=== PATIENT | female | born 1935 | race Caucasian/White ===

== ENCOUNTER → 2016-11-30 | Outpatient (CLI) | payer MEDICARE ==
[~2016-11-30] MED LIST: ACETAMINOPHEN PO; ALLEGRA ALLERGY60 MG PO; ALLEGRA PO; ALLEGRA180 MG PO; ANTI-DIARRHEAL2 M1 PO; BENADRYL25 M3 PO; BENICAR HCT 20-1 TA1 PO; BENICAR20 MG PO; CARAFATE1 G; CARVEDILOL6.25 MG PO; CIPROFLOXACIN500 M1 PO; COLESTIPOL HCL11 PO; COREG3.125 MG PO; CYANOCOBAL1000 MCG/M INJ; DESYREL50 M1 PO; DITROPAN PO; DITROPAN XL PO; FLAGYL PO; HYDROCODON-ACE1 EAC7 PO; HYDROXYUREA500 M1 PO; LORTAB 5-325 M1 EACH PO; MIRALAX17 GM PO; NEXIUM PO; NITROLINGUAL12 G1 TL; NORVASC10 MG PO; OMEPRAZOLE20 M1 PO; OMEPRAZOLE40 M1 PO; PATIENT'S PHARMACY; PHENERGAN12.5 MG PO; PRILOSEC20 M1 PO; SENNA-S TABLET1 EAC1 PO; SERTRALINE HCL100 MG PO; SIMVASTATIN40 MG PO; SYNTHROID PO; SYNTHROID112 MCG PO; SYNTHROID125 PO; TOPROL XL 50 MG50 MG PO; TOPROL XL50 MG PO; TRAZODONE PO; VITAMIN B-121000 MC1 SUBQ; ZOLOFT PO; ZOLOFT100 MG PO; ZOVIRAX30 GM TOP; ZYRTEC PO; [UNRECOGNIZED DRUG - OTHER] PO; [UNRECOGNIZED DRUG - OTHER] PO
--- NOTE | ~2016-11-30 | CT4 ---
[facility] A Service of [facility] RADIOLOGY TEXT RESULTS PATIENT: DEDRA ALONSO LOCATION: [facility] : 37 UNIT #: [id number] AGE: [address]: Angeli Lund APRN SEX: F ORDER DR: [id number] [address] [address] [id number] O MR#: [id number] Acc #: [id number] NAME: DEDRA ALONSO : 1935 SEX: F STUDY DATE/TIME: 11/30/2016 14:11 UNIT: [facility] ROOM: STUDY DESCRIPTION: CT Abd and Pelv Wo Cont Attending Physician: Angeli Lund A.P.R.N. Referring Physician: Angeli Lund A.P.R.N. Ordering Physician: Angeli Lund A.P.R.N. Primary Care Physician: Carol Nichols M.D. MEDICAL IMAGING REPORT This report is preliminary unless electronic signature is present. EXAM CT of the abdomen and pelvis without contrast media. HISTORY Abdominal pain for 2 weeks, history of diverticulitis. TECHNIQUE Axial imaging of the abdomen and pelvis was performed without contrast and compared with a prior noncontrast scan of January 2016. This CT exam was performed with one or more of the following radiation dose reduction techniques: automatic exposure control, adjustment of mA and/or kV according to patient size, and iterative reconstruction. FINDINGS Scans through the lung bases show some fibrosis in both bases. There are atherosclerotic calcifications throughout the coronary arteries. There is a dense calcification in the right lobe of the liver anterior segment which is unchanged. Gallbladder is absent. Spleen is of normal size, adrenal glands are normal. Pancreas is normal. There are multiple bilateral nonobstructing renal stones. There is no hydronephrosis or hydroureter. No stones are identified in either ureter. There is mild diffuse colon wall thickening involving the right colon and transverse colon to just to the left of midline. Findings are consistent with diffuse colitis. No other bowel wall thickening is identified. Uterus is absent. No pelvic masses or fluid collections are seen. Postop changes of prior ventral hernia repair present. There is diffuse atherosclerotic disease present and there is degenerative disc disease at L4-5 and 5-1. CONCLUSION 1. Evidence of colitis involving the right and transverse colons. 2. Postop changes of prior cholecystectomy and hysterectomy. 3. Multiple bilateral nonobstructing renal stones. [facility] A Service of [facility] RADIOLOGY TEXT RESULTS PATIENT: DEDRA ALONSO LOCATION: [facility] : 37 UNIT #: [id number] AGE: [address]: Angeli Lund APRN SEX: F ORDER DR: Dictated by... Johann Cotto M.D. THIS IS AN ELECTRONICALLY VERIFIED REPORT Johann Cotto M.D. at 12/01/2016 9:32 AM ANUSHA/ramiro TD: 11/30/2016 19:59 JOB #: [id number] MEDICAL IMAGING REPORT Page 1 of 1
== END | disposition home or self-care (01) ==
LOC: SCT 14:00
DX: R10.9 Unspecified abdominal pain (principal); K52.9 Noninfective gastroenteritis and colitis, unspecified; N20.0 Calculus of kidney; Z90.49 Acquired absence of other specified parts of digestive tract; Z90.710 Acquired absence of both cervix and uterus
CPT/HCPCS: 74176

== ENCOUNTER 2016-12-06 10:27 | Observation (INO) | payer OTHER ==
--- NOTE | ~2016-12-06 | HP ---
Unit #: [id number] #: [id number] Patient: DEDRA ALONSO [id number] [address] [place], [place] [address] [id number] I MR#: [id number] NAME: DEDRA ALONSO. ROOM: 218 Age: 81 Sex: F Admission Date: 12/06/2016 : 1935 Attending Physician: Levon Ratliff M.D. Primary Care Physician: Carol Nichols M.D. HISTORY AND PHYSICAL SINGING TEACHER Dr. Brown CHIEF COMPLAINT Abdominal pain. HISTORY OF PRESENT ILLNESS The patient is a very pleasant 81-year-old female with a history of multiple medical problems including hypothyroidism, hypertension, GERD, and depression, who is a direct admit from her primary care physician's office with complaints of lower abdominal pain. Patient was started on Cipro and Flagyl just last week but without any improvement. She denies the pain is associated with eating but does endorse a decreased appetite. Patient denies any bright red blood per rectum, no melena, no fevers or chills, and no hematemesis. She does endorse some nausea but without any emesis. Patient states she has had at least two episodes of diverticulitis. She states that the pain feels as if someone is twisting her insides and then letting go, and this is coming and going and been persistent throughout. Patient also endorses some chest pain that radiates around to both sides of her chest up into her neck area. Patient was to see Dr. Brown today regarding this as he is her primary stamp maker but not make the appointment secondary to being admitted. Patient states that she has had a stress test before and does follow with Dr. Brown. REVIEW OF SYSTEMS Ten out of 14 systems were reviewed and negative unless noted above. PAST MEDICAL HISTORY 1. Hypothyroidism. 2. Diverticulitis. 3. Hypertension. 4. Gastroesophageal reflux disease. 5. Depression. PAST SURGICAL HISTORY 1. Hysterectomy. 2. Bladder tack. 3. Hernia repair. 4. Cholecystectomy. ALLERGIES Codeine and latex. Unit #: [id number] #: [id number] Patient: DEDRA ALONSO MEDICATIONS 1. Synthroid 125 mcg q.a.m. 2. Zoloft 100 mg daily. 3. Prilosec 20 mg daily. 4. Norvasc 10 mg daily. 5. Kathy 60 mg daily as needed. 6. Toprol-XL 25 mg every evening. SOCIAL HISTORY Patient lives alone. No tobacco, no alcohol. FAMILY HISTORY Noncontributory. PHYSICAL EXAMINATION VITAL SIGNS: Patient is afebrile, although in the doctor's office she did have a temperature of 99.1, and saturating 94% on room air. The remainder of vital signs were stable. GENERAL: Patient appears to be a well-developed, overweight, elderly female who is in no acute distress. HEENT: Pupils are equal and reactive to light and accommodation. Extraocular muscles are intact. Oropharynx is clear. Mucous membranes appear to be slightly dry. Sclerae are anicteric. NECK: Without lymphadenopathy. LUNGS: Clear to auscultation bilaterally. HEART: Regular rate and rhythm. No rubs, gallops, or murmurs appreciated. ABDOMEN: Positive bowel sounds. Soft, slightly tender to palpation in the right lower and upper quadrants, however, no rebound or guarding, and obese. EXTREMITIES: No clubbing, cyanosis, or edema was noted. NEUROLOGIC: Nonfocal. DIAGNOSTIC STUDIES LABORATORY: Currently pending at the time of this dictation. IMAGING: CT scan of the abdomen and pelvis from December 01 shows colitis on the right side, as well as the transverse colon. Multiple nonobstructive kidney stones were seen as well. ASSESSMENT AND PLAN 1. Colitis, appears to be right sided, has not improved with one week of antibiotics which included ciprofloxacin and Flagyl. Question if this could be ischemic bowel. I have asked Dr. Springer with Gastroenterology to see as he did perform patient's colonoscopy earlier this year. Will hold further antibiotics for now. I have ordered stool studies, along with sedimentation rate and CRP. 2. Chest pain. I have ordered cardiac enzymes. The patient does follow with Dr. Brown and had an appointment as an outpatient to see him today. Will check cardiac enzymes and then defer to the morning hospitalist if they want to consult Cardiology at this time. 3. Hypothyroidism. Will check a TSH level and continue home dose. 4. Gastroesophageal reflux disease. Continue proton pump inhibitor. 5. Hypertension. Continue home medications with parameters. 6. Depression. Continue Zoloft. 7. Patient is a Full Code. 8. I expect disposition in under 48 hours. 1. Unit #: [id number] #: [id number] Patient: DEDRA ALONSO Dictated by Anju Nair TD: 12/06/2016 17:23 JOB #: [id number] HISTORY AND PHYSICAL Page 1 of 1 X X HISTORY AND PHYSICAL
--- NOTE | ~2016-12-06 | DS ---
Unit #: [id number] #: [id number] Patient: DEDRA ALONSO [id number] [address] [address] [id number] I MR#: [id number] NAME: DEDRA ALONSO. ROOM: 218 Age: 81 Sex: F Admission Date: 12/06/2016 : 1935 Discharge Date: Attending Physician: Jessy White M.D. Primary Care Physician: Carol Nichols M.D. DISCHARGE SUMMARY DISCHARGE DIAGNOSES 1. Acute colitis. 2. Chest pain, atypical. 3. Acute thrombocytopenia, etiology unclear, no active bleeding. 4. Anemia, acute, no active bleeding, likely iron deficiency, occult stool negative. Also, she has B12 deficiency. 5. B12 deficiency. 6. Hypothyroidism. 7. History of diverticulitis. 8. Hypertension. 9. Gastroesophageal reflux disease. 10. Depression. CONSULTATION Dr. Springer. PROCEDURE Patient had colonoscopy but could not complete the colonoscopy because patient has a lot of stool. Bowels are not clear. DIAGNOSTIC STUDIES LABORATORY: Clostridium difficile negative. Shigatoxin 1 and 2 negative. Campylobacter negative. WBC 6.2, hemoglobin 8.9, platelets 72,000. Sodium 139, potassium 3.5, creatinine 0.9. AST 24, ALT 15, alkaline phosphatase 122, albumin 3.3. Occult blood in stool negative. B12 is 136. Ferritin 436. Folate 8.2. Troponin negative. TSH 5. ALLERGIES Latex. DISCHARGE MEDICATIONS 1. Tylenol 650 q.6 p.r.n. pain. 2. Zoloft 100 mg p.o. daily. 3. Kathy 60 mg p.o. daily. 4. Amlodipine 10 mg daily. 5. Toprol XL 25 daily. 6. Omeprazole 20 daily. 7. Synthroid 125 mcg daily. 8. Flagyl 500 p.o. three times daily for five days. 9. Ciprofloxacin 500 mg p.o. b.i.d. for five days. 10. MiraLax 17 g daily. 11. Senna one tablet p.o. daily. 12. Vitamin B12 at 1000 mcg subcutaneous daily. Unit #: [id number] #: [id number] Patient: DEDRA ALONSO HOSPITALIZATION COURSE A 81 year old admitted because of abdominal pain. Abdominal pain secondary to acute colitis: Patient seen by Dr. Springer. Patient did have history of colitis recently. On November 30, patient's CT of the abdomen and pelvis shows evidence of colitis in right and transverse colon. 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 The patient was started on Flagyl and Zosyn. Colonoscopy could not be completed because of the heavy stool burden. I discussed in detail with Dr. Springer. Currently, patient is symptomatic, tolerating diet okay. The patient will be discharged home on antibiotics, Flagyl and ciprofloxacin for five days. She will have daily MiraLax and Senna and follow with Dr. Springer in six weeks' time. She might need repeat colonoscopy for followup of her recurrent colitis. Her Clostridium difficile is negative. Vitamin B12 deficiency with anemia and thrombocytopenia: I am going to give her subcutaneous injections and follow. She might need home health for injections. History of hypertension: Stable. Chest pain: Atypical, likely from colitis, currently resolved. Also, could be from her gastritis and GERD. Acute thrombocytopenia: Likely from B12 deficiency. No active bleeding. Continue with B12 and follow with family physician. Acute anemia: Likely from B12 deficiency. Iron levels are normal. No active bleeding. Continue with B12 and follow with family physician. DISPOSITION Discharge home. FOLLOWUP 1. Follow with family physician in one week time. 2. Follow with Dr. Ankit Springer in six weeks' time. Dictated by... Anju Sequeira/antony TD: 12/08/2016 11:26 JOB #: [id number] CC: Ankit Springer M.D. Unit #: [id number] #: [id number] Patient: DEDRA ALONSO DISCHARGE SUMMARY Page 1 of 1 X Jessy White MD DISCHARGE SUMMARY
--- NOTE | ~2016-12-06 | OR ---
Unit #: [id number] #: [id number] Patient: DEDRA ALONSO [id number] [address] [address] [id number] I MR#: [id number] NAME: DEDRA ALONSO. ROOM: 218 Date of Procedure: 12/07/2016 Admission Date: 12/08/2016 Surgeon: Ankit Springer M.D. : 1935 Attending Physician: Jessy White M.D. Primary Care Physician: Carol Nichols M.D. OPERATIVE REPORT PRIMARY CARE PHYSICIAN Carol Nichols M.D. PREOPERATIVE DIAGNOSES The patient presented with a history of abdominal pain and colitis on a CAT scan. PROCEDURE PERFORMED Sigmoidoscopy. POSTOPERATIVE DIAGNOSES The patient had solid fecal impaction in the rectosigmoid and proximally as far as one could see. Therefore, colonoscopy was not performed and procedure was only limited up to the examination except the colon only up to the proximal sigmoid colon. The mucosa here was normal. RECOMMENDATIONS It is noteworthy the patient had a colonoscopy within the last year or two and therefore colon cancer is not an issue. The most likely etiology of presentation is infectious colitis. Therefore, suggest continue on empiric treatment. We will also give her a dose of magnesium citrate tomorrow morning to disimpact the stool. SEDATION USED MAC. DESCRIPTION OF PROCEDURE Following detailed explanation of the potential risks and complications of a colonoscopy, namely perforation, bleeding, and complication related to sedation, the patient was brought to GI lab and laid in the left lateral decubitus position. A digital rectal examination was performed, which was normal. Lubricated tip of the Olympus video colonoscopy was inserted through the anus and advanced under direct vision. The scope was advanced past rectum into the sigmoid colon. Solid fecal impaction was noted in this area. Solid stool was present as far as one could see up to the proximal sigmoid. Thereafter, the impaction got even worse. The scope was then withdrawn. The examined mucosa appeared normal. The patient tolerated the procedure without any postprocedure complications. Dictated by... Ankit Springer M.D. Unit #: [id number] #: [id number] Patient: DEDRA ALONSO RADHA/lorenza TD: 12/08/2016 17:40 JOB #: [id number] Levon Ratliff M.D. OPERATIVE REPORT Page 1 of 1 X Ankit Springer MD PROCEDURE OPERATIVE NOTE
--- NOTE | ~2016-12-06 | CO ---
Unit #: [id number] #: [id number] Patient: DEDRA ALONSO [id number] [address] [address] [id number] I MR#: [id number] NAME: DEDRA ALONSO. ROOM: 218 Age: 81 Sex: F Admission Date: 12/08/2016 : 1935 Attending Physician: Jessy White M.D. Primary Care Physician: Carol Nichols M.D. Consultation Date: 12/06/2016 CONSULTATION REPORT PRIMARY CARE PHYSICIAN Stephanie GuzmanRClaudioN. REASON FOR CONSULTATION "Colitis." HISTORY OF PRESENT ILLNESS Ms. Pierce is a very pleasant 81-year-old white female. The patient is quite active physically and was well until about a week ago when she developed pain in the lower abdomen along with watery, nonbloody diarrhea. This has abated somewhat after she saw her PCP and was given oral treatment antibiotics Flagyl and Levaquin. Two days later, the patient had recurrent cramping with diarrhea and significant pain in the lower abdomen to the point that she had to be brought to the hospital. She is still having intermittent spasms of pain. There is no history of passing any blood per rectum. PAST MEDICAL HISTORY Significant for history of hypothyroidism, hypertension, gastroesophageal reflux, depression, and diverticulitis. PAST SURGICAL HISTORY Included cholecystectomy, hysterectomy, herniorrhaphy, and bladder suspension surgery. MEDICATIONS At home included Synthroid, Zoloft, Prilosec, Norvasc, Toprol-XL. ALLERGIES She is allergic to codeine and latex. FAMILY HISTORY None of colon or pancreatic cancer, or liver disease. SOCIAL HISTORY She lives at home by herself. Does not smoke or drink alcohol. REVIEW OF SYSTEMS Detailed review of organ systems does not reveal any recent weight loss. No history of fever, chills, or rigors. No history of headache, seizures, chest pain, or syncope. No history of cough, expectoration, or hemoptysis. No history of dysuria, hematuria, or pyuria. No history of Unit #: [id number] #: [id number] Patient: SANDMANN,DEDRA J focal seizures or extremity weakness. Rest of the review of organ systems are unremarkable. PHYSICAL EXAMINATION GENERAL: She is awake, alert, and oriented, and appears comfortable. VITAL SIGNS: Stable with a temperature of 98.6, pulse 84 per minute and regular, respiratory rate is 18, blood pressure is 140/68. She weighs 180 pounds, which is close to her baseline weight. HEENT: She has mild pallor. There being no icterus, lymphadenopathy, or peripheral edema. CARDIOVASCULAR: Normal heart sounds. No murmurs. LUNGS: Auscultation over the lungs reveals normal breath sounds. Good air entry. ABDOMEN: Soft and there being localized tenderness in the right lower quadrant and suprapubic area. No rigidity, guarding, or rebound is felt. Liver and spleen are not palpable. Bowel sounds normal. DIAGNOSTIC STUDIES LABORATORY RESULTS: Shows no leukocytosis in fact the patient has normochromic normocytic anemia with a hemoglobin of 9.7. The white count is normal, platelet count is 79 and her baseline platelet count in the past has been normal. Serum chemistry is essentially unremarkable and albumin is 3.7. IMAGING STUDIES: CT scan of the abdomen shows diffuse colitis primarily involving the right side of colon and transverse colon. CLINICAL IMPRESSION The most likely etiology patient presentation is indeed infectious colitis. We will need stool studies for Clostridium difficile toxin, enteric picture and fecal leukocytes. We will also prep the patient for a limited colonoscopy with MiraLax Gatorade prep for tomorrow morning. Also, she will require analgesia for pain and this is being written as in the form of morphine 3 mg and Phenergan 12.5 mg q.4 hours p.r.n. pain. Thank you very much for asking me to see this pleasant woman. I appreciate the consult. Dictated by... Anju Catalan/lorenza TD: 12/07/2016 02:29 JOB #: [id number] CC: Stephanie GuzmanRSajan . . Unit #: [id number] #: [id number] Patient: DEDRA ALONSO CONSULTATION REPORT Page 1 of 1 X Ankit Springer MD CONSULTATION REPORT
[~2016-12-06 10:27] MED LIST changes: -ACETAMINOPHEN PO; -ALLEGRA ALLERGY60 MG PO; -CIPROFLOXACIN500 M1 PO; -CYANOCOBAL1000 MCG/M INJ; -DITROPAN XL PO; -FLAGYL PO; -HYDROCODON-ACE1 EAC7 PO; -HYDROXYUREA500 M1 PO; -LORTAB 5-325 M1 EACH PO; -MIRALAX17 GM PO; -NORVASC10 MG PO; -OMEPRAZOLE40 M1 PO; -PATIENT'S PHARMACY; -PHENERGAN12.5 MG PO; -SENNA-S TABLET1 EAC1 PO; -TOPROL XL50 MG PO; -VITAMIN B-121000 MC1 SUBQ; -ZOLOFT100 MG PO; -ZOVIRAX30 GM TOP
[2016-12-06] MEDS ORDERED: NORVASC10 MG PO (16:01)
[2016-12-06] MEDS ORDERED: ALLEGRA ALLERGY60 MG PO (16:01)
[2016-12-06] MEDS ORDERED: ACETAMINOPHEN PO (16:02)
[2016-12-06 18:17] LABS: BASOPHIL# 0.1 X10e3 (0-0.3); BASOPHIL% 1.5 % (0-2.5); HEMATOCRIT 28.5 % (35.0-45.0); HEMOGLOBIN 9.7 gm/dL (12.0-16.0); LYMPHOCYTE# 5.9 X10e3 (1.0-3.5); LYMPHOCYTE% 94.2 % (17.0-45.0); MEAN CELL VOLUME 97.5 FL (83-96); MEAN CORPUSCULAR HGB CONC 33.9 g/dL (30-36); MEAN PLATELET VOLUME 7.1 FL (6.5-11.5); MONOCYTE# 0.1 X10e3 (0-1.0); MONOCYTE% 2.3 % (3.0-12.0); NEUTROPHIL# 0.1 X10e3 (1.5-7.1); PLATELET COUNT 79 X10e3 (140-420); RED BLOOD COUNT 2.92 X10e (3.90-5.30); RED CELL DISTRIBUTION WIDTH 17.3 % (11.0-15.5); WHITE BLOOD COUNT 6.3 X10e3 (4.0-10.5)
[2016-12-06 18:19] LABS: DIFF IND YES
[2016-12-06 18:30] LABS: ALBUMIN SERUM 3.7 g/dL (3.5-5.0); BILIRUBIN,TOTAL 0.5 mg/dL (0.2-2.0); BUN/CREATININE RATIO 16.66; CALCIUM SERUM 8.6 mg/dL (8.4-10.2); CREATININE SERUM 0.9 mg/dL (0.6-1.4); GLOM FILT RATE Estimated 60.9 mL/min (>60); POTASSIUM 4.2 mmol/L (3.5-5.1); PROTEIN TOTAL SERUM 7.2 g/dL (6.0-8.3)
[2016-12-06 18:56] LABS: ANISOCYTOSIS MOD; MB 1.6 ng/ml; PLATELET ESTIMATE DECREASED (NORMAL); POIKILOCYTOSIS SL
[2016-12-06 22:01] LABS: %MB 1.9 % (0.0-4.0); MB 1.6 ng/ml
[2016-12-07 01:31] LABS: EOSINOPHIL% 0.1 % (0.0-7.0); HEMATOCRIT 28.3 % (35.0-45.0); HEMOGLOBIN 9.5 gm/dL (12.0-16.0); LYMPHOCYTE# 7.8 X10e3 (1.0-3.5); LYMPHOCYTE% 94.5 % (17.0-45.0); MEAN CELL VOLUME 98.3 FL (83-96); MEAN CORPUSCULAR HEMOGLOBIN 32.9 PG (28-34); MEAN CORPUSCULAR HGB CONC 33.5 g/dL (30-36); MONOCYTE# 0.2 X10e3 (0-1.0); MONOCYTE% 2.5 % (3.0-12.0); NEUTROPHIL# 0.2 X10e3 (1.5-7.1); NEUTROPHIL% 2.9 % (40-75); PLATELET COUNT 75 X10e3 (140-420); RED BLOOD COUNT 2.88 X10e (3.90-5.30); RED CELL DISTRIBUTION WIDTH 17.6 % (11.0-15.5); WHITE BLOOD COUNT 8.2 X10e3 (4.0-10.5)
[2016-12-07 01:32] LABS: DIFF IND NO
[2016-12-07 01:55] LABS: CK TOTAL 57 IU/L (26-140)
[2016-12-07 01:59] LABS: ALBUMIN SERUM 3.6 g/dL (3.5-5.0); BILIRUBIN,TOTAL 0.7 mg/dL (0.2-2.0); BUN/CREATININE RATIO 17.5; CALCIUM SERUM 8.4 mg/dL (8.4-10.2); CREATININE SERUM 0.8 mg/dL (0.6-1.4); GLOM FILT RATE Estimated 70.2 mL/min (>60); POTASSIUM 3.7 mmol/L (3.5-5.1); PROTEIN TOTAL SERUM 6.8 g/dL (6.0-8.3)
[2016-12-07 12:01] LABS: IRON SERUM 117 ug/dL (28-170); TOTAL IRON BINDING CAPACITY 279 ug/dL (269-535); TRANSFERRIN 199 mg/dL (192-382); TRANSFERRIN SATURATION 42 % (20-50)
[2016-12-07 12:19] LABS: FOLATE (FOLIC ACID) 8.2 ng/mL (>5.8)
[2016-12-08 07:09] LABS: ALBUMIN SERUM 3.3 g/dL (3.5-5.0); BILIRUBIN,TOTAL 0.3 mg/dL (0.2-2.0); BUN/CREATININE RATIO 15.55; CALCIUM SERUM 8.3 mg/dL (8.4-10.2); CREATININE SERUM 0.9 mg/dL (0.6-1.4); GLOM FILT RATE Estimated 60.9 mL/min (>60); POTASSIUM 3.5 mmol/L (3.5-5.1); PROTEIN TOTAL SERUM 6.4 g/dL (6.0-8.3)
[2016-12-08 07:21] LABS: HEMATOCRIT 26.5 % (35.0-45.0); HEMOGLOBIN 8.9 gm/dL (12.0-16.0); MEAN CORPUSCULAR HEMOGLOBIN 32.8 PG (28-34); MEAN CORPUSCULAR HGB CONC 33.5 g/dL (30-36); MEAN PLATELET VOLUME 7.5 FL (6.5-11.5); RED BLOOD COUNT 2.7 X10e (3.90-5.30); RED CELL DISTRIBUTION WIDTH 17.6 % (11.0-15.5); WHITE BLOOD COUNT 6.2 X10e3 (4.0-10.5)
[2016-12-08] MEDS ORDERED: FLAGYL PO (11:04)
[2016-12-08] MEDS ORDERED: CIPROFLOXACIN500 M1 PO (11:05)
[2016-12-08] MEDS ORDERED: VITAMIN B-121000 MC1 SUBQ (11:07)
[2016-12-08] MEDS ORDERED: SENNA-S TABLET1 EAC1 PO (11:08)
[2016-12-08] MEDS ORDERED: MIRALAX17 GM PO (11:08)
== END 2016-12-08 12:17 | disposition home or self-care (01) ==
LOC: UNDOADMOB 10:27 → C2A 10:27 → UNDOADMOB 15:02 → C2A 15:02
PROVIDERS: Internal Medicine
PROC: 0DJD8ZZ Inspection of Lower Intestinal Tract, Via Natural or Artificial Opening Endoscopic (ICD-10-PCS; principal; 2016-12-08)
DX: K52.89 Other specified noninfective gastroenteritis and colitis (principal); R07.89 Other chest pain; K56.41 Fecal impaction; D69.6 Thrombocytopenia, unspecified; D64.9 Anemia, unspecified; E53.8 Deficiency of other specified B group vitamins; E03.9 Hypothyroidism, unspecified; I10 Essential (primary) hypertension; K21.9 Gastro-esophageal reflux disease without esophagitis; F32.9 Major depressive disorder, single episode, unspecified; Z79.899 Other long term (current) drug therapy; Z91.040 Latex allergy status; Z90.710 Acquired absence of both cervix and uterus; Z90.49 Acquired absence of other specified parts of digestive tract; Z98.890 Other specified postprocedural states; Z88.5 Allergy status to narcotic agent
CPT/HCPCS: 80053; 82274; 82550; 82553; 82607; 82728; 82746; 83540; 83550; 83630; 84443; 84484; 85025; 85027; 85652; 86140; 87045; 87427; 87493; 87899; G0378; J2270; J2543

== ENCOUNTER 2017-01-01 11:54 | Inpatient (IN) | payer OTHER ==
[~2017-01-01] VITALS: Ht 160 cm; Wt 87.7 kg
--- NOTE | ~2017-01-01 | CR72 ---
[facility] A Service of [facility] RADIOLOGY TEXT RESULTS PATIENT: DEDRA ALONSO LOCATION: [facility] : 37 UNIT #: [id number] AGE: [address]: Alexx Gil MD SEX: F ORDER DR: [id number] [facility] [address] [place], [place] [address] [id number] MR#: [id number] Acc #: [id number] NAME: DEDRA ALONSO : 1935 SEX: F STUDY DATE/TIME: 01/01/2017 13:35 UNIT: [facility] ROOM: STUDY DESCRIPTION: CR Chest Single View Portable Attending Physician: Alexx Gil M.D. Ordering Physician: Alexx Gil M.D. Primary Care Physician: Carol Nichols M.D. MEDICAL IMAGING REPORT This report is preliminary unless electronic signature is present EXAM Chest portable 01/01/2017 1335 hours. HISTORY 81-year-old with 1-week history of chest pain and shortness of air. Prior history of hypertension. COMPARISON 08/29/2010 FINDINGS Portable upright chest demonstrates heart size within normal limits. There is a mildly tortuous aorta. There is mild right hilar fullness new since the prior exam. There is pulmonary venous distension and mild interstitial prominence increased from the prior study. Findings could represent mild edema. Suggest followup chest radiographs post-treatment for edema to reassess the right hilum. If this remains prominent, a followup chest CT with contrast would be recommended. IMPRESSION Heart size is normal. There is mild pulmonary vascular prominence and mild interstitial prominence in the lungs increased from 08/29/2010. The right hilum appears mildly prominent which could simply be due to the vascular distension although an underlying lymph node or mass cannot be excluded. Suggest treatment for underlying interstitial process with short-interval followup radiographs. If this finding persists at the right hilum then a followup chest CT with contrast would be recommended to exclude a hilar lymph node or hilar mass. STAT * RESULT STS. [facility] A Service of [facility] RADIOLOGY TEXT RESULTS PATIENT: DEDRA ALONSO LOCATION: [facility] : 37 UNIT #: [id number] AGE: [address]: Alexx Gil MD SEX: F ORDER DR: Dictated by... Elle Peterson M.D. THIS IS AN ELECTRONICALLY VERIFIED REPORT Elle Peterson M.D. at 01/01/2017 2:35 PM JOHN/carolyn TD: 01/01/2017 14:00 JOB #: [id number] MEDICAL IMAGING REPORT Page 1 of 1 COPY
--- NOTE | ~2017-01-01 | TOC ---
Unit #: [id number] #: [id number] Patient: DEDRA ALONSO [id number] [address] [place], [place] [address] [id number] I MR#: [id number] NAME: DEDRA ALONSO. ROOM: 226 Age: 81 Sex: F Admission Date: 01/01/2017 : 1935 Attending Physician: Keyana Carpenter M.D. Primary Care Physician: Carol Nichols M.D. TRANSFER OF CARE SUMMARY PRINCIPAL DIAGNOSES 1. Lymphocytosis with pending flow cytometry and bone marrow biopsy. 2. Anemia, secondary to poor bone marrow production status post 2 units of packed red blood cells. 3. Thrombocytopenia, secondary to poor marrow production, stable with platelet level of approximately 40,000. 4. Hypertension. 5. Hypothyroidism. 6. Gastroesophageal reflux disease. 7. Obesity. 8. Mild vitamin B12 deficiency. 9. Right lower lobe spiculated mass. PAN WASHER HAND Dr. Hooker, Oncology. PROCEDURES 1. Bone marrow biopsy results which are currently pending. 2. Flow cytometry, results of which are also currently pending. 3. CT scan of the abdomen and pelvis on January 01, 2017 with a spiculated nodule on the right lower lobe measuring 2.1 cm. Underlying emphysema noted. Moderate stool burden in the ascending and transverse colon. Multiple nonobstructing renal calculi. 4. Chest x-ray on January 01, 2017 with changes of emphysema, pulmonary venous distention, and mild interstitial prominence are noted. CLINICAL HISTORY AND HOSPITAL COURSE Ms. Alonso is a very nice 81-year-old female who presents to the emergency department with significant fatigue. In the emergency department, the patient was found to have a hemoglobin of 6.8 in addition to being thrombocytopenic with a platelet count of 51,000. White blood cell count was elevated at 30.8. Patient underwent CT scan which revealed only constipation but no other acute findings. I will note that CT scan did reveal a right lower lobe pulmonary nodule. Patient was subsequently admitted. Patient was started on empiric antibiotics, but she did not appear to have any infection. Review of records indicate that she was at this facility in early December 2016 with colitis and was found to be anemic at that point; however, Hemoccult at that point was negative and sigmoidoscopy was unremarkable. She was also mildly B12 deficient but that was being replaced. Records at that time revealed a significant amount of lymphocytes and differential on CBC. In early December, hemoglobin and platelet count were normal. However, she returned with significantly Unit #: [id number] #: [id number] Patient: DEDRA ALONSO abnormal values at this time. A peripheral smear done while patient was in the ER revealed atypical lymphocytes. Hence, a hematology evaluation. The patient has undergone bone marrow biopsy and flow cytometry, results which are currently pending. I will note that after 2 units of blood, the patient's hemoglobin has remained stable. Her thrombocytopenia has also remained stable without any evidence of bleeding. Patient had not had any heme-positive stools since here. I am currently awaiting final pathology to determine course of action. Patient's other chronic conditions remain stable. She has been seen by physical therapy and suggesting a rolling walker but otherwise she can be helped with ambulation at home by her daughters and patient is agreeable. Further hospital course to be dictated as an addendum. Dictated by... Keyana Carpenter M.D. [facility]/antony TD: 01/05/2017 11:20 JOB #: [id number] TRANSFER OF CARE SUMMARY Page 1 of 1 X Keyana Carpenter MD TRANSFER OF CARE SUMMARY
--- NOTE | ~2017-01-01 | DS ---
Unit #: [id number] #: [id number] Patient: DEDRA ALONSO [id number] [address] [address] [id number] I MR#: [id number] NAME: DEDRA ALONSO. ROOM: 226 Age: 81 Sex: F Admission Date: 01/01/2017 : 1935 Discharge Date: 01/04/2017 Attending Physician: Keyana Carpenter M.D. Primary Care Physician: Carol Nichols M.D. DISCHARGE SUMMARY ADDENDUM Please note, this is a continuation of a previously dictated transfer of care note done earlier today. PRINCIPAL DIAGNOSES 1. 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 2. Herpes labialis. 3. Depression. 4. Seasonal allergies. 5. Urge incontinence. 6. Hypothyroidism. HOSPITAL COURSE Patient was seen after last dictation by Dr. Hooker and patient really would like to go home. It appears pathology from her bone marrow biopsy and flow cytometry will not be back until early next week. Dr. Hooker was agreeable to discharge home and close followup with him early next week. DISCHARGE CONDITION Stable. DISCHARGE STATUS Discharge to home. DISCHARGE MEDICATIONS 1. Tylenol 500 mg p.o. daily p.r.n. for pain. 2. Zoloft 100 mg daily. 3. Kathy 1 tablet p.o. daily p.r.n. for allergy symptoms. 4. Acyclovir ointment 5% applied topically every 4 hours to cold sores to stop after dose on January 10, 2017. 5. Toprol XL 50 mg daily. 6. Ditropan XL 15 mg daily. 7. Omeprazole 40 mg daily. 8. Levothyroxine 125 mcg daily. 9. Vitamin B12 1000 mcg injected weekly. DISCHARGE INSTRUCTIONS 1. Patient instructed to follow a regular diet. 2. She can increase her activity as tolerated. 3. Followup: Patient will follow up with Dr. Hooker on Sunday, January 08, 2017, as instructed. Unit #: [id number] #: [id number] Patient: DEDRA ALONSO Dictated by... Keyana Carpenter M.D. SHIVANI/john TD: 01/05/2017 11:16 JOB #: [id number] DISCHARGE SUMMARY Page 1 of 1 X Keyana Carpenter MD DISCHARGE SUMMARY
--- NOTE | ~2017-01-01 | EKG ---
PATIENT: DEDRA ALONSO UNIT #: [id number] Ventricular Rate: 86 BPM Atrial Rate: 86 BPM P-R Interval: 136 ms QRS Duration: 88 ms Q-T Interval: 392 ms QTC Calculation(Bezet): 469 ms P [place]: 55 degrees Calculated R [place]: -11 degrees Calculated T [place]: 18 degrees Diagnosis Line: Normal sinus rhythm Diagnosis Line: Normal ECG Diagnosis Line: When compared with ECG of 03-AUG-2015 17:07, Diagnosis Line: No significant change was found Diagnosis Line: Confirmed by MARCY RAPP MD ([id number]) on Diagnosis Line: 01/03/2017 7:10:54 AM INTERPRETING MD: EVERARDO
--- NOTE | ~2017-01-01 | HP ---
Unit #: [id number] #: [id number] Patient: DEDRA ALONSO [id number] [address] [address] [id number] MR#: [id number] NAME: DEDRA ALONSO ROOM: Age: 81 Sex: F Admission Date: 01/01/2017 : 1935 Attending Physician: Alexx Santos M.D. Primary Care Physician: Carol Nichols M.D. HISTORY AND PHYSICAL CHIEF COMPLAINT Weakness. HISTORY OF PRESENT ILLNESS The patient is a 81-year-old female with history of multiple medical problems including hypothyroidism, hypertension, GERD, depression, colitis. Was recently discharged from the hospital after sigmoidoscopy on December 08. Presented to the emergency room complaining of generalized weakness. The patient stated that the patient was on antibiotics for a colitis and since then the patient has been gradually worsening to the point where she cannot stand up and walk. The patient was found to have a hemoglobin of 6.8 and platelets of 51,000 and WBC of 30.8 and is being admitted for the above reasons. The patient also stated that patient has black stools and denies any nausea and vomiting. The patient also complains of right lower quadrant pain where she had the colitis, but the pain is improved compared to the previous admissions. Denies any fevers, chills, diarrhea. PAST MEDICAL HISTORY 1. History of hypothyroidism. 2. Diverticulitis. 3. Hypertension. 4. Gastroesophageal reflux disease. 5. Depression. PAST SURGICAL HISTORY 1. Hysterectomy. 2. Bladder tuck. 3. Hernia repair. 4. Cholecystectomy. ALLERGIES Codeine and latex. HOME MEDICATIONS 1. Omeprazole. 2. Synthroid. 3. Zoloft. 4. Toprol XL. 5. Kathy. 6. Acetaminophen. 7. Ditropan. 8. Cyanocobalamin. Unit #: [id number] #: [id number] Patient: DEDRA ALONSO SOCIAL HISTORY The patient lives alone. No history of tobacco or alcohol. FAMILY HISTORY Reviewed and none. REVIEW OF SYSTEMS Positive for weakness. Positive for black stools. Positive for fatigue. Denies any nausea, vomiting. Positive for shortness of air. Positive for chest pain. Other systems were reviewed and are negative. PHYSICAL EXAMINATION GENERAL: The patient is lying on the bed, not in acute distress. VITAL SIGNS: Temperature 98, pulse 93, respiratory rate 18, blood pressure 155/74, saturating 96% on room air. HEENT: Atraumatic, normocephalic. Pupils equal, round, and reactive to light and accommodation. Extraocular movements are intact. Dry mucous membrane. NECK: Supple. LUNGS: Decreased air entry at the bases. HEART: Regular rate and rhythm. ABDOMEN: Soft. Positive bowel sounds. Discomfort at the right lower quadrant. EXTREMITIES: No cyanosis. No clubbing. NEUROLOGIC: Alert, awake, oriented. Positive for weakness. DIAGNOSTIC STUDIES LABORATORY: Sodium 133, potassium 3.4, chloride 106, bicarbonate 23, glucose 99, BUN 9, creatinine 0.9. AST 16, ALT 8, alkaline phosphatase 90. WBC 30.8, hemoglobin 6.8, hematocrit 20.7, MCV 103.6. Lymphocytes are 99%. Troponin less than 0.05. INR is 1.1. IMAGING: Chest x-ray shows heart size is normal. There is a mild pulmonary vascular prominence and mild interstitial prominence in the lungs increased from August 29, 2010. The right hilum appears mildly prominent which could simply be due to the vascular distention, although an underlying lymph node or mass cannot be excluded. Suggest treatment for underlying interstitial process with short interval followup radiographs. Path reviewed showed a macrocytic anemia with moderate anisocytosis and mild poikilocytosis. Leukocytosis with an absolute lymphocytosis with atypical lymphocytes present. Thrombocytopenia. Lymphoproliferative disorder cannot be ruled out in this material. ASSESSMENT 1. 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 2. Anemia. 3. Hypothyroidism. PLAN Plan to admit the patient to the inpatient. The patient will receive 1 unit of packed red blood cells and monitor closely for platelet count. Will have the oncology evaluation for the lymphoproliferative disorders and follow with GI. Consult is done to rule out the bleeding etiology and further recommendations will follow. Unit #: [id number] #: [id number] Patient: DEDRA ALONSO Dictated by Anju Dockery TD: 01/01/2017 16:13 JOB #: [id number] HISTORY AND PHYSICAL Page 1 of 1 X LUCRECIA JERRY MD HISTORY AND PHYSICAL
--- NOTE | ~2017-01-01 | CT4 ---
[facility] A Service of [facility] RADIOLOGY TEXT RESULTS PATIENT: DEDRA ALONSO LOCATION: [facility] 565-01 : 37 UNIT #: [id number] AGE: [address]: Keyana Carpenter MD SEX: F ORDER DR: [id number] [facility] [address] [place], [place] [address] [id number] I MR#: [id number] #: [id number] NAME: DEDRA ALONSO. : 1935 SEX: F STUDY DATE/TIME: 01/01/2017 15:44 UNIT: [facility] ROOM: [facility] STUDY DESCRIPTION: CT Abd and Pelv Wo Cont Attending Physician: Lyndsay Mchugh M.D. Ordering Physician: Alexx Santos M.D. Primary Care Physician: Carol Nichols M.D. MEDICAL IMAGING REPORT This report is preliminary unless electronic signature is present EXAM CT abdomen and pelvis HISTORY Lower abdomen pain for 2 weeks. Recent colitis. FINDINGS CT abdomen and pelvis performed without administration of oral or intravascular contrast. Study somewhat limited in the absence of both vascular and enteric contrast. Comparison 11/30/2016. This CT exam was performed with one or more of the following radiation dose reduction techniques: Automatic exposure control, adjustment of mA and/or kV according to patient size, and iterative reconstruction. Lung bases show evidence of underlying emphysema. Linear scarring at lung bases. Evidence of prior inferior lingular wedge resection with surgical chain sutures present. In the posteromedial right lower lobe, there is a somewhat spiculated nodule measuring 1.7 cm x 2 cm x 2.1 cm. This portion of the lung was not included on the prior study from November 2016. Adjacent to this spiculated nodule, there is some patchy airspace disease. It is possible that these findings reflect an infectious or inflammatory etiology, but the dominant nodular density is concerning for potential malignancy. It is best further evaluated with CT PET scan. It may be amenable to percutaneous sampling. The heart is normal in size. There is a water-density structure along the right heart border most likely representing some form of pericardial or epiphrenic cyst. Not significantly changed from the prior examination. Also evident on a study from 2011 and felt to be benign in nature. The liver contains calcified granulomata. Status post cholecystectomy. No biliary obstruction. Calcified granulomata in the spleen. The pancreas is unremarkable. There are multiple bilateral nonobstructing intrarenal calculi. No ureteral dilatation or secondary sign of recent stone passage. No perinephric inflammatory change. [facility] A Service of [facility] RADIOLOGY TEXT RESULTS PATIENT: DEDRA ALONSO LOCATION: [facility] 565-01 : 37 UNIT #: [id number] AGE: [address]: Keyana Carpenter MD SEX: F ORDER DR: CT PELVIS: No inguinal adenopathy. Patient is status post hysterectomy. There is mild pelvic floor laxity, which is unchanged. Bilateral symmetric foci of relatively increased density just inferior to the vaginal introitus are unchanged from studies dating to 2011. Exact etiology unclear. They may represent some form of benign inclusion cysts or Bartholin's gland cysts. The relatively increased density could be a reflection of proteinaceous internal fluid. Stability since 2012 favors benign etiology. Correlate with exam. Patient appears to retain unremarkable left ovary. I see no right ovary. There is no free fluid in the pelvis. The urinary bladder is unremarkable. No pelvic or retroperitoneal adenopathy. Distal esophagus, stomach, small bowel and appendix unremarkable. Moderate stool burden in the ascending and transverse colon probably physiologic in nature. There is no colonic inflammatory change. Air and stool seen throughout colon to rectum. No pathologic colonic dilatation. Prior right paracentral anterior abdominal wall mesh repair. Atherosclerotic arterial calcifications. Degenerative changes in the spine without acute appearing bony abnormality. IMPRESSION 1. There is a slightly spiculated nodule in the posteromedial right lower lobe measuring up to 2.1 cm in diameter. This portion of the lung was not included on the CT examination from November 2016. The nodule is indeterminate in appearance. Malignancy is a consideration. It is best further evaluated with CT PET scan and, potentially, with percutaneous sampling. Infectious or inflammatory etiologies not excluded, but neoplasm is a strong consideration. Adjacent to this nodule, there are some patchy and linear densities which are nonspecific and could represent areas of inflammatory change or atelectasis. 2. Underlying emphysema. 3. There is no clearly acute abnormality within the abdomen or pelvis. There is no indication of ongoing colitis. There is a moderate stool burden in the ascending and transverse colon but no colonic wall thickening or pathologic dilatation. No pericolonic inflammation. 4. Small bowel and appendix unremarkable. 5. Multiple nonobstructing renal calculi. No secondary signs of recent stone passage and no perinephric inflammatory change. 6. Patient is status post hysterectomy. Patient appears to retain unremarkable left ovary. Right ovary not visualized. 7. Mild pelvic floor laxity. 8. Stable appearance of slightly hyperdense bilateral nodular structures just inferior to the vaginal introitus. No change on studies dating to at least 2011. This is felt to be benign in nature, though the exact etiology is unclear. This could be some form of bilateral inclusion cysts or Bartholin cysts with proteinaceous internal contents. Stability since 2011 favors benign etiology. Correlate with exam. 9. Status post cholecystectomy. [facility] A Service of [facility] RADIOLOGY TEXT RESULTS PATIENT: DEDRA ALONSO LOCATION: [facility] 565-01 : 37 UNIT #: [id number] AGE: [address]: Keyana Carpenter MD SEX: F ORDER DR: 10. Prior anterior right paracentral abdominal wall repair with mesh placement. See remainder of findings in body of report above. Dictated by... Johann Little M.D. THIS IS AN ELECTRONICALLY VERIFIED REPORT Johann Little M.D. at 01/02/2017 6:04 PM YOLANDA/alejandro TD: 01/02/2017 02:08 JOB #: [id number] MEDICAL IMAGING REPORT Page 1 of 1 COPY
--- NOTE | ~2017-01-01 | XA51 ---
[facility] A Service of [facility] RADIOLOGY TEXT RESULTS PATIENT: DEDRA ALONSO LOCATION: [facility] : 37 UNIT #: [id number] AGE: [address]: Keyana Carpenter MD SEX: F ORDER DR: [id number] [place] [id number] [facility]. [place], [place] [address] [id number] I MR#: [id number] Acc #: [id number] NAME: DEDRA ALONSO. : 1935 SEX: F STUDY DATE/TIME: 01/03/2017 7:50 UNIT: [facility] ROOM: [facility] STUDY DESCRIPTION: XA BX Bone Marrow Attending Physician: Keyana Carpenter M.D. Ordering Physician: Shannan Hooker M.D. Primary Care Physician: Carol Nichols M.D. MEDICAL IMAGING REPORT This report is preliminary unless electronic signature is present PROCEDURE Fluoroscopically guided bone marrow biopsy and aspiration. INDICATIONS Pancytopenia. The fluoroscopy time is 0.5 minutes. Reference air kerma 78 mGy. MEDICATIONS Administered IV Versed and fentanyl for conscious sedation. Approximately 20 minutes of sedation time was monitored by appropriately credentialed radiology nursing staff with direct face to face supervision provided by Dr. Peterson. The risks, benefits and alternatives of the procedure were discussed with the patient and an informed consent was obtained. In the procedure room, a time-out was performed confirming correct patient and procedure. All elements of maximum sterile-barrier technique utilized according to guidelines appropriate for the procedure. TECHNIQUE/FINDINGS Patient was placed in the prone position on the fluoroscopy table and the skin overlying the posterior right iliac crest was prepped and draped in the usual sterile fashion. 1% lidocaine utilized to anesthetize the skin and underlying subcutaneous tissues. Next, under fluoroscopic guidance an 11-gauge OnControl access needle was advanced into the marrow space and the bone marrow aspirate followed by core biopsy was obtained. The needle was removed and a sterile dressing was applied. No immediate complications. IMPRESSION Technically successful fluoroscopically guided bone marrow biopsy and aspiration. [facility] A Service of [facility] RADIOLOGY TEXT RESULTS PATIENT: DEDRA ALONSO LOCATION: [facility] 226-01 : 37 UNIT #: [id number] AGE: [address]: Keyana Carpenter MD SEX: F ORDER DR: Dictated by... Armani Peterson M.D. THIS IS AN ELECTRONICALLY VERIFIED REPORT Armani Peterson M.D. at 01/06/2017 9:05 AM CHRISTIN/ramiro TD: 01/03/2017 19:03 JOB #: [id number] MEDICAL IMAGING REPORT Page 1 of 1 COPY
--- NOTE | ~2017-01-01 | CO ---
Unit #: [id number] #: [id number] Patient: DEDRA ALONSO [id number] [address] [place], [place] [address] [id number] I MR#: [id number] NAME: DEDRA ALONSO ROOM: 565 Age: 81 Sex: F Admission Date: 01/01/2017 : 1935 Attending Physician: Keyana Carpenter M.D. Primary Care Physician: Carol Nichols M.D. Consultation Date: 01/02/2017 CONSULTATION REPORT REASON FOR CONSULT Elevated white count, please evaluate. HISTORY OF PRESENT ILLNESS A 81-year-old lady who started having weakness for the last few months and then started having night sweats and tiredness for the last couple of months, lost about 20-30 pounds over the last few months, was found to have elevated white count, and we were requested to evaluate. PAST MEDICAL HISTORY 1. Hypothyroidism. 2. Hypertension. 3. Gastroesophageal reflux. 4. Depression. 5. Diverticulitis. ALLERGIES Codeine and latex. CHRONIC medications 1. Synthroid. 2. Zoloft. 3. Toprol. 4. Omeprazole. 5. Kathy. 6. Ditropan. 7. B12. 8. Periodic Tylenol. FAMILY HISTORY Negative for unusual blood disorders. SOCIAL HISTORY Lives alone. Has a daughter she takes care of. REVIEW OF SYSTEMS Fairly extensive. Progressive weakness, progressive weight loss, and progressive tiredness and shortness of breath. No pain. Chills, periodic fever, and night sweats. Otherwise, six or eight systems were within normal limits. PHYSICAL EXAMINATION HEENT: She has a Zoster on the lower lip. LYMPHATICS: No palpable nodes. Unit #: [id number] #: [id number] Patient: DEDRA ALONSO LUNGS: Crackles. No rales. ABDOMEN: Central obesity, moderate, difficult to palpate organs. Bowel sounds are present. CENTRAL NERVOUS SYSTEM: Grossly intact. PELVIC/BREASTS: Not performed. DIAGNOSTIC STUDIES LABORATORY: CBC with hemoglobin 7.2, hematocrit 21.2, white count 28.3, and platelets 41,000. Differential shows 97% lymphocytes and 1+ neutrophils. Peripheral smear was examined, and although the cells look like lymphocytes, they do not fit exactly the criteria for the lymphocytes. IMPRESSION AND PLAN This 81-year-old lady with B symptoms has most probable chronic lymphocytic leukemia or a variant of chronic lymphocytic leukemia as it does not fit exactly, but flow cytometry is pending. So at this point, we will proceed with interventional radiology bone marrow aspirate biopsy and flow cytometry, LDH, haptoglobin, and reticulocyte count today, and just to be absolutely sure that they do FISH analysis, I will repeat the blood for flow cytometry, LL panel, and FISH analysis. Dictated by... Anju Osborn/henny TD: 01/03/2017 15:04 JOB #: [id number] CONSULTATION REPORT Page 1 of 1 X Link Hooker MD X CONSULTATION REPORT
[~2017-01-01 11:54] MED LIST changes: +ACETAMINOPHEN PO; +ALLEGRA ALLERGY60 MG PO; +CIPROFLOXACIN500 M1 PO; +FLAGYL PO; +MIRALAX17 GM PO; +NORVASC10 MG PO; +SENNA-S TABLET1 EAC1 PO; +VITAMIN B-121000 MC1 SUBQ
[2017-01-01 12:39] LABS: HEMATOCRIT 20.7 % (35.0-45.0); LYMPHOCYTE% 97.5 % (17.0-45.0); MEAN CELL VOLUME 103.6 FL (83-96); MEAN CORPUSCULAR HEMOGLOBIN 33.9 PG (28-34); MEAN CORPUSCULAR HGB CONC 32.7 g/dL (30-36); MEAN PLATELET VOLUME 7.6 FL (6.5-11.5); MONOCYTE# 0.7 X10e3 (0-1.0); MONOCYTE% 2.2 % (3.0-12.0); NEUTROPHIL# 0.1 X10e3 (1.5-7.1); NEUTROPHIL% 0.3 % (40-75); PLATELET COUNT 51 X10e3 (140-420); RED CELL DISTRIBUTION WIDTH 17.8 % (11.0-15.5); WHITE BLOOD COUNT 30.8 X10e3 (4.0-10.5)
[2017-01-01 12:44] LABS: DIFF IND YES; HEMOGLOBIN 6.8 gm/dL (12.0-16.0)
[2017-01-01 12:50] LABS: ALBUMIN SERUM 3.6 g/dL (3.5-5.0); BILIRUBIN, DIRECT 0.1 mg/dL (0.0-0.2); BILIRUBIN,INDIRECT 0.8 mg/dL (0.0-0.9); BILIRUBIN,TOTAL 0.9 mg/dL (0.2-2.0); CALCIUM SERUM 8.4 mg/dL (8.4-10.2); CREATININE SERUM 0.9 mg/dL (0.6-1.4); GLOM FILT RATE Estimated 60.9 mL/min (>60); POTASSIUM 3.4 mmol/L (3.5-5.1); PROTEIN TOTAL SERUM 7.6 g/dL (6.0-8.3)
[2017-01-01 13:28] LABS: NUCLEATED RED BLOOD CELL 5 /100 (0); PLATELET ESTIMATE DECREASED (NORMAL)
[2017-01-01 13:35] LABS: ANISOCYTOSIS MOD
[2017-01-01 13:36] LABS: TEAR DROP CELLS PRESENT
[2017-01-01 13:37] LABS: POLYCHROMASIA SL
[2017-01-01] MEDS ORDERED: PATIENT'S PHARMACY (13:48)
[2017-01-01] MEDS ORDERED: OMEPRAZOLE40 M1 PO (13:48)
[2017-01-01] MEDS ORDERED: ALLEGRA PO (13:49)
[2017-01-01] MEDS ORDERED: SYNTHROID125 PO (13:49)
[2017-01-01] MEDS ORDERED: TOPROL XL50 MG PO (13:49)
[2017-01-01] MEDS ORDERED: ZOLOFT100 MG PO (13:49)
[2017-01-01] MEDS ORDERED: ACETAMINOPHEN PO (13:50)
[2017-01-01] MEDS ORDERED: DITROPAN XL PO (13:50)
[2017-01-01] MEDS ORDERED: CYANOCOBAL1000 MCG/M INJ (13:50)
[2017-01-01 14:02] LABS: POC - CKMB <1.0 ng/mL (0.0-7.9); POC - TROPONIN <0.05 ng/mL (<=0.05)
[2017-01-01 14:20] LABS: POC - CKMB <1.0 ng/mL (0.0-7.9); POC - TROPONIN <0.05 ng/mL (<=0.05)
[2017-01-01 14:37] LABS: INR 1.1; PARTIAL THROMBOPLASTIN TIME 25.9 SECONDS (23.5-31.3); PROTHROMBIN TIME (PATIENT) 11.4 SECONDS (10.0-11.7)
[2017-01-02 05:50] LABS: HEMATOCRIT 21.2 % (35.0-45.0); HEMOGLOBIN 7.2 gm/dL (12.0-16.0); MEAN CORPUSCULAR HEMOGLOBIN 33.1 PG (28-34); MEAN PLATELET VOLUME 7.1 FL (6.5-11.5); RED BLOOD COUNT 2.18 X10e (3.90-5.30); RED CELL DISTRIBUTION WIDTH 20.8 % (11.0-15.5); WHITE BLOOD COUNT 28.3 X10e3 (4.0-10.5)
[2017-01-02 06:07] LABS: BUN/CREATININE RATIO 12.85; CALCIUM SERUM 8.4 mg/dL (8.4-10.2); CREATININE SERUM 0.7 mg/dL (0.6-1.4); GLOM FILT RATE Estimated 82.4 mL/min (>60); POTASSIUM 3.7 mmol/L (3.5-5.1)
[2017-01-02 06:10] LABS: MEAN CELL VOLUME 97.4 FL (83-96)
[2017-01-02 17:24] LABS: INR 1.1; PARTIAL THROMBOPLASTIN TIME 26.6 SECONDS (23.5-31.3); PROTHROMBIN TIME (PATIENT) 11.4 SECONDS (10.0-11.7)
[2017-01-03 06:53] LABS: HEMATOCRIT 25.7 % (35.0-45.0); HEMOGLOBIN 8.7 gm/dL (12.0-16.0); MEAN CELL VOLUME 95.6 FL (83-96); MEAN CORPUSCULAR HEMOGLOBIN 32.5 PG (28-34); MEAN CORPUSCULAR HGB CONC 34.1 g/dL (30-36); MEAN PLATELET VOLUME 7.1 FL (6.5-11.5); RED BLOOD COUNT 2.69 X10e (3.90-5.30); RED CELL DISTRIBUTION WIDTH 19.6 % (11.0-15.5); WHITE BLOOD COUNT 29.6 X10e3 (4.0-10.5)
[2017-01-04 12:37] LABS: HEMATOCRIT 26.1 % (35.0-45.0); HEMOGLOBIN 8.7 gm/dL (12.0-16.0); MEAN CELL VOLUME 97.2 FL (83-96); MEAN CORPUSCULAR HEMOGLOBIN 32.4 PG (28-34); MEAN CORPUSCULAR HGB CONC 33.4 g/dL (30-36); MEAN PLATELET VOLUME 7.3 FL (6.5-11.5); RED BLOOD COUNT 2.69 X10e (3.90-5.30); RED CELL DISTRIBUTION WIDTH 19.1 % (11.0-15.5); WHITE BLOOD COUNT 31.2 X10e3 (4.0-10.5)
[2017-01-04] MEDS ORDERED: ZOVIRAX30 GM TOP (15:45)
== END 2017-01-04 16:29 | disposition home or self-care (01) | DRG 842 ==
LOC: CED 11:54 → C5C 14:35 → C2A 01-03 17:59
PROVIDERS: Emergency Medicine; Internal Medicine
PROC: 30233N1 Transfusion of Nonautologous Red Blood Cells into Peripheral Vein, Percutaneous Approach (ICD-10-PCS; principal; 2017-01-01)
PROC: 07DR3ZX Extraction of Iliac Bone Marrow, Percutaneous Approach, Diagnostic (ICD-10-PCS; 2017-01-03)
DX: C92.Z0 Other myeloid leukemia not having achieved remission (principal); D69.6 Thrombocytopenia, unspecified; D53.9 Nutritional anemia, unspecified; B00.1 Herpesviral vesicular dermatitis; F32.9 Major depressive disorder, single episode, unspecified; N39.41 Urge incontinence; E03.9 Hypothyroidism, unspecified; J30.2 Other seasonal allergic rhinitis; I10 Essential (primary) hypertension; K21.9 Gastro-esophageal reflux disease without esophagitis; Z90.710 Acquired absence of both cervix and uterus; Z90.49 Acquired absence of other specified parts of digestive tract; R71.8 Other abnormality of red blood cells; E66.9 Obesity, unspecified; E53.8 Deficiency of other specified B group vitamins; R91.8 Other nonspecific abnormal finding of lung field
CPT/HCPCS: 36415; 71010; 74176; 76937; 77002; 80048; 80076; 81206; 81207; 81315; 81401; 82553; 83010; 83615; 84484; 85025; 85027; 85044; 85610; 85730; 86850; 86900; 86901; 86923; 88182; 88184; 88185; 88305; 88311; 88313; 88319; 93005; 97110; 97116; 97163; 97165; 97530; 99291; G8978-GP; G8979-GP; G8987-GO; G8988-GO; G8989-GO; J2250; J2270; J3010; J3420; P9016

== ENCOUNTER 2017-02-07 11:18 | Inpatient (IN) | payer OTHER ==
[~2017-02-07] VITALS: Ht 160 cm; Wt 72.5 kg
--- NOTE | ~2017-02-07 | CO ---
Unit #: [id number] #: [id number] Patient: DEDRA ALONSO [id number] [address] [address] [id number] I MR#: [id number] NAME: DEDRA ALONSO. ROOM: 551 Age: 81 Sex: F Admission Date: 02/07/2017 : 1935 Attending Physician: Keyana Carpenter M.D. Primary Care Physician: Carol Nichols M.D. 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 The patient's hemoglobin was 4.7 on presentation. She was complaining of fatigue and easy tiredness. No significant shortness of breath. No significant chest pain. After 2 units, her hemoglobin went up to 6.5. The patient is going to receive another 2 units. The patient was made a DNR and transferred to the unit. She is currently having significant shortness of breath with exertion, but otherwise no other symptoms. The patient is saturating 96% on 6 L oxygen. She has no complaints. She is being watched in the unit for close observation. She was a direct admit from office, who has been following her. Recent hospitalization for general weakness in 12/2016. Bone marrow biopsy diagnosed with acute myelogenous leukemia, failed treatment with Vidaza. The patient states that she is having occasional cough. No fever or weight loss. No nausea, vomiting, or diarrhea. PAST MEDICAL HISTORY Significant for acute myelogenous leukemia, diagnosed in 01/01/2017; hypothyroidism; hypertension; diverticular disease; GERD; depression. PAST SURGICAL HISTORY Significant for hysterectomy, bladder surgery, hernia repair, cholecystectomy, status post bone marrow biopsy. SOCIAL HISTORY The patient lives with her daughter. No history of alcohol. No history of alcohol use. No history of polysubstance use. Walks with a walker. No occupational exposure. FAMILY HISTORY Significant for her father dying of myocardial infarction. Brother of a myocardial infarction at age 43. Extensive history of coronary artery disease. ALLERGIES The patient is allergic to codeine and latex. HOME MEDICATIONS From the previous discharge; omeprazole 40 mg every morning, Synthroid 125 mcg daily, Zoloft 100 mg daily, Toprol 50 mg daily, Kathy 1 tablet daily, acetaminophen 500 mg daily, Ditropan 15 mg daily, hydrocodone and acetaminophen 5/325 one tablet q.i.d. as needed, Phenergan 12.5 mg every 4 hours for nausea. Unit #: [id number] #: [id number] Patient: DEDRA ALONSO REVIEW OF SYSTEMS Significant for what is in history of present illness. Otherwise, 12-point review of systems negative. PHYSICAL EXAMINATION VITAL SIGNS: T-current 99.0, pulse 84, respiratory rate 23, blood pressure 141/62. HEENT: Extraocular movements are intact. The patient is wearing a nasal cannula. NECK: Shows no accessory muscle use. Neck is very large than 17 inches in circumference. There is no JVD. There is no significant lymphadenopathy. CHEST: Shows kind of decreased breath sounds bilaterally without rhonchi, rales, or wheezes. CARDIOVASCULAR: Regular rate. No gallop. ABDOMEN: Soft, nontender, nondistended. EXTREMITIES: Shows no evidence of edema. DIAGNOSTIC STUDIES LABORATORY RESULTS: White count 18.6, hemoglobin 6.5. Potassium 3.3, albumin 3.1, BUN and creatinine 12 and 0.8, glucose 113. ASSESSMENT 1. Acute myelogenous leukemia causing leukocytosis, thrombocytopenia, and anemia. We will replace anemia as tolerated. Replace platelets if they drop below 10. Hold off on giving any Lasix as the patient may be intravascularly depleted a little bit. Normal ejection fraction. 2. Hypoxia may be due to low hemoglobin. Let us get a chest x-ray in the morning. We are going to do a stat procalcitonin. I would like to put the patient in respiratory isolation. The patient is currently not on anti-infective medication. 3. Oliguria. No evidence of renal insufficiency on a Chem-7. Continued transfusions of packed red blood cells as needed. Thank you very much for this consult. Please page me at [phone] if you have any questions. Dictated by.Claudio. Anju oS/lorenza TD: 02/08/2017 17:20 JOB #: [id number] CONSULTATION REPORT Page 1 of 1 X Frankie Nguyen MD CONSULTATION REPORT
--- NOTE | ~2017-02-07 | CR63 ---
[facility] A Service of [facility] & [facility] RADIOLOGY TEXT RESULTS PATIENT: DEDRA ALONSO LOCATION: [facility] [id number] : 37 UNIT #: [id number] AGE: [address]: Keyana Carpenter MD SEX: F ORDER DR: [id number] [facility] [address] [place], [place] [address] [id number] I MR#: [id number] #: [id number] NAME: DEDRA ALONSO. : 1935 SEX: F STUDY DATE/TIME: 02/10/2017 8:31 UNIT: [facility] ROOM: [facility] STUDY DESCRIPTION: CR Chest 2 View Attending Physician: Keyana Carpenter M.D. Ordering Physician: Sabine Nguyen M.D. Primary Care Physician: Carol Nichols M.D. MEDICAL IMAGING REPORT This report is preliminary unless electronic signature is present EXAM Chest PA and lateral 02/10/2017 HISTORY Shortness of breath and generalized weakness for 4 days. Benign essential hypertension. Leukemia. FINDINGS The cardiac and mediastinal structures are stable compared with 02/08/2017. Right arm approach PICC line is unchanged. There is slight elevation of the right hemidiaphragm with atelectasis at the lung bases. The lungs are otherwise clear. There are no pleural effusions. IMPRESSION No active pulmonary disease. Dictated by... Deacon Dubon M.D. THIS IS AN ELECTRONICALLY VERIFIED REPORT Deacon Dubon M.D. at 02/11/2017 6:36 AM KRT/to TD: 02/10/2017 14:54 JOB #: [id number] MEDICAL IMAGING REPORT Page 1 of 1 COPY
--- NOTE | ~2017-02-07 | HP ---
Unit #: [id number] #: [id number] Patient: DEDRA ALONSO [id number] [address] [address] [id number] I MR#: [id number] NAME: DEDRA ALONSO. ROOM: [facility] Age: 81 Sex: F Admission Date: 02/07/2017 : 1935 Attending Physician: Tracey Ballard M.D. Primary Care Physician: Carol Nichols M.D. HISTORY AND PHYSICAL CHIEF COMPLAINT Symptomatic anemia. HISTORY OF PRESENT ILLNESS The patient is a 81-year-old female with past medical history of acute myelogenous leukemia, hypertension, hypothyroidism, GERD, depression and diverticular disease who was a direct admit from Dr. Hooker's office. The patient was hospitalized at [facility] January 01, 2017 for general weakness. She underwent bone marrow biopsy during that admission. Ultimately she was diagnosed with acute myelogenous leukemia. She has failed treatment with Vidaza. Her last treatment was January 20, 2017. She was seeing Dr. Hooker today in followup. She states that she has been feeling increasing generally weak. She has been having intermittent lightheadedness, worse with position change. She states she has had intermittent chest and back pain. She has had persistent cough. She denies any fever. She denies any falls or syncopal episodes. Her appetite has been decreased. She denies any vomiting or diarrhea. She has lost weight since being diagnosed with leukemia. In Dr. Hooker's office the patient's white blood cell count was 206.2, hemoglobin 4.8, platelets 20. I was told that she was hypotensive and tachycardic. She was transferred to [facility] for admission. PAST MEDICAL HISTORY 1. Admission to [facility] January 01, 2017 for generalized weakness. She underwent bone marrow biopsy and was ultimately diagnosed with acute myelogenous leukemia. 2. Acute myelogenous leukemia that has failed treatment with Vidaza. Her last treatment was January 20, 2017. 3. Hypothyroidism. 4. Hypertension. 5. Diverticular disease. 6. GERD. 7. Depression. PAST SURGICAL HISTORY 1. Hysterectomy. 2. Bladder surgery. 3. Hernia repair. 4. Cholecystectomy. Unit #: [id number] #: [id number] Patient: DEDRA ALONSO 5. Bone marrow biopsy. SOCIAL HISTORY The patient lives with her daughter. There is no tobacco or alcohol use. She walks with a walker. FAMILY HISTORY Family history is notable for her father dying of a myocardial infarction. Her brother apparently of a myocardial infarction at the age of 43. Another sibling had coronary artery disease. ALLERGIES Codeine and latex. HOME MEDICATIONS Home medications per the H and P from December include omeprazole, Synthroid, Zoloft, Toprol XL, Kathy, Tylenol, Ditropan, cyanocobalamin. Home medications will need to be reviewed and verified. REVIEW OF SYSTEMS A complete review of systems is negative except as indicated in the HPI. PHYSICAL EXAMINATION VITAL SIGNS: Blood pressure is 119/64, heart rate 77, oxygen saturation 95%, respirations 20. GENERAL: The patient is a female who is awake and alert, in no acute distress. She is chronically ill appearing. HEENT: The head is atraumatic. Conjunctivae are pale. NECK: Neck is supple. Trachea is midline. CARDIOVASCULAR: Regular rate and rhythm. RESPIRATORY: Lungs are clear to auscultation bilaterally with no increased work of breathing. ABDOMEN: Abdomen is soft, nontender with bowel sounds present in all 4 quadrants. EXTREMITIES: Extremities are nontender with no pedal edema. NEUROLOGIC: The patient is awake and alert. She follows commands. PSYCHIATRIC: Mood and affect are normal. The patient is cooperative. SKIN: Skin of examined areas is warm and dry. DIAGNOSTIC TESTS LABORATORY: White blood cell count from Dr. Hooker's office noted to be 206.2, hemoglobin 4.8, hematocrit 15, platelets 20. ASSESSMENT 1. The patient is a 81-year-old female with symptomatic anemia. The patient's hemoglobin was 8.7 on January 04, 2017. It is 4.8 today. 2. Thrombocytopenia with a platelet count of 20. Platelets were 41 on January 04, 2017. 3. Hyperleukocytosis. The patient's white blood cell count is in the 200s. It was 31 on January 04, 2017. 4. Acute myelogenous leukemia that has failed treatment with Vidaza. Laboratory abnormalities are as noted above. 5. Hypertension. I was told that the patient's blood pressure was low in the office. 6. Hypothyroidism. 7. GERD. 8. Depression. 9. Diverticular disease. Unit #: [id number] #: [id number] Patient: DEDRA ALONSO PLAN 1. Admit to ICU. 2. Regular diet as tolerated. 3. Bedrest. 4. Fall precautions. 5. Normal saline at 75 mL an hour. 6. Type and cross and transfuse 2 units packed red blood cells now. 7. CBC and comprehensive metabolic panel now and in the morning. 8. CBC 1 hour after transfusion and q.[address] Hooker regarding acute myelogenous leukemia. I have spoken with him regarding this patient. The plan was for Hospice consult. However, the family is reluctant to speak with Hospice at this time. They would like to think about it more before we initiate the consult. 10. Consult Dr. Nguyen regarding ICU admission. 11. Protonix for GI prophylaxis. 12. SCDs for DVT prophylaxis. 13. Zofran p.r.n. 14. Regarding code status, the patient is a [id number]. NOTE: Thirty-six minutes critical care time spent in the care of this patient. Dictated by Anju Diop/jayashree TD: 02/07/2017 14:20 JOB #: [id number] HISTORY AND PHYSICAL Page 1 of 1 X Tracey Ballard MD HISTORY AND PHYSICAL
--- NOTE | ~2017-02-07 | CR72 ---
[facility] A Service of [facility] & [facility] RADIOLOGY TEXT RESULTS PATIENT: DEDRA ALONSO LOCATION: [place] [id number] : 37 UNIT #: [id number] AGE: [address]: Keyana Carpenter MD SEX: F ORDER DR: [id number] [facility] [address] [place], [place] [address] [id number] I MR#: [id number] #: [id number] NAME: DEDRA ALONSO. : 1935 SEX: F STUDY DATE/TIME: 02/08/2017 5:34 UNIT: [facility] ROOM: [facility] STUDY DESCRIPTION: CR Chest Single View Portable Attending Physician: Keyana Carpenter M.D. Ordering Physician: Sabine Nguyen M.D. Primary Care Physician: Carol Nichols M.D. MEDICAL IMAGING REPORT This report is preliminary unless electronic signature is present EXAM Portable chest HISTORY Shortness of air, weakness and dizzy for 2 days. FINDINGS Right arm approach PICC tip is at the junction of the SVC and right atrium. Cardiac and mediastinal contours are within normal limits. No infiltrates or effusions. Mild pleural thickening in the lung apices. Dictated by... Alvaro Jensen M.D. THIS IS AN ELECTRONICALLY VERIFIED REPORT Alvaro Jensen M.D. at 02/08/2017 4:03 PM LILIAM/magalis TD: 02/08/2017 08:13 JOB #: [id number] MEDICAL IMAGING REPORT Page 1 of 1 COPY
--- NOTE | ~2017-02-07 | CO ---
Unit #: [id number] #: [id number] Patient: DEDRA ALONSO [id number] [address] [address] [id number] I MR#: [id number] NAME: DEDRA ALONSO. ROOM: [facility] Age: 81 Sex: F Admission Date: 02/07/2017 : 1935 Attending Physician: Tracey Ballard M.D. Primary Care Physician: Carol Nichols M.D. Consultation Date: 02/07/2017 CONSULTATION REPORT REASON FOR EVALUATION Symptomatic anemia, please evaluate. HISTORY OF PRESENT ILLNESS A 81-year-old lady that we have been seeing and treating for the last month or so has a history of acute myelogenous leukemia and it was not typable, meaning it was M0 type of leukemia with no specific markers, so she was treated with Vidaza five consecutive days and presented to our office today with severe symptomatic anemia, generalized weakness, inability to function so she is being admitted to ICU for aggressive packed RBCs. PAST MEDICAL HISTORY Her past history is otherwise remarkable for: Hypothyroidism, hypertension, depressive disorder, GERD but no other major illnesses. FAMILY HISTORY Negative for blood dyscrasias. SOCIAL HISTORY Patient lives with daughter, nonsmoker. No alcohol usage. ALLERGIES Codeine and latex. HOME MEDICATIONS 1. Kathy. 2. Synthroid. 3. Omeprazole. 4. Zoloft. 5. B12. 6. Tylenol. 7. Percocet. REVIEW OF SYSTEMS Generalized weakness, decreased appetite, shortness of breath on exertion, palpitations, dizziness. No hemoptysis, hematemesis, melena, hematuria, or hematochezia. Otherwise six or eight systems were within normal limits. PHYSICAL EXAMINATION GENERAL: Very pale lady, difficulty to sit up due to dizziness. No palpable nodes. LUNGS: Crackles. No rales. CARDIOVASCULAR: Distant S1, S2. Unit #: [id number] #: [id number] Patient: DEDRA ALONSO ABDOMEN: No organomegaly. CENTRAL NERVOUS SYSTEM: Grossly intact. PELVIC: Not performed. BREAST: Not performed. DIAGNOSTIC STUDIES LABORATORY: CBC: Hemoglobin 4.7, hematocrit 15.1, white count 186, platelets 22,000. Glucose 113, BUN 12, creatinine 0.8, sodium 137, potassium 3.3, chloride 104, CO2 of 20. IMPRESSION This 81-year-old lady with newly diagnosed acute myelogenous leukemia, undifferentiated type, treated with Vidaza last month with presentation of severe symptomatic anemia and thrombocytopenia and white count ranging between 180,000 to 200,000. PLAN I had a long discussion with the patient and the daughter. We are going to make her a no code, admit her to intensive care unit. Transfuse 2 to 4 units of packed RBC. After her hemoglobin improves if her general condition improves, we may consider retreating with Vidaza but if it does not improve, then proceed with [facility] and supportive care only. All this was discussed and agreed upon. Dictated by... Anju Osborn/antony TD: 02/07/2017 15:51 JOB #: [id number] CONSULTATION REPORT Page 1 of 1 X Link Hooker MD X CONSULTATION REPORT
--- NOTE | ~2017-02-07 | DS ---
Unit #: [id number] #: [id number] Patient: DEDRA ALONSO [id number] [address] [address] [id number] I MR#: [id number] NAME: DEDRA ALONSO. ROOM: 563 Age: 81 Sex: F Admission Date: 02/07/2017 : 1935 Discharge Date: 02/10/2017 Attending Physician: Keyana Carpenter M.D. Primary Care Physician: Carol Nichols M.D. DISCHARGE SUMMARY PRINCIPAL DIAGNOSES 1. Severe symptomatic anemia status post transfusion of four units of packed red blood cells. 2. Acute myeloid leukemia, aggressive, failed Vidaza. 3. Thrombocytopenia status post transfusion of two units of platelets. 4. Hyper leukocytosis now placed on hydroxyurea therapy. 5. Hypokalemia. 6. Moderate protein malnutrition. 7. Overweight. 8. Gastroesophageal reflux disease. 9. Hypothyroidism. 10. Hypertension. 11. Depression. 12. Urge incontinence. CONSULTANTS 1. Dr. Santillan, Oncology. 2. Dr. Nguyen, Critical Care. PROCEDURES 1. Transfusion of four units of packed red blood cells. This occurred without complication. 2. Transfusion of two units of platelets. This occurred without complication. 3. Chest x-ray, on February 08, 2017, without any acute findings. CLINICAL HISTORY AND HOSPITAL COURSE Ms. Alonso is a nice, 81-year-old female recently diagnosed with aggressive AML, who presents back to this emergency department from Dr. Hooker's office with increasing weakness and shortness of breath. In the office, she was found to a hemoglobin of 4.8 and platelets of 20. She was also mildly hypotensive and tachycardiac. The patient was subsequently admitted to the ICU secondary to severe anemia. Patient was ultimately transfused four units of packed red blood cells. Since that time, her hemoglobin has remained stable at approximately 9.3. She has had no evidence of bleeding. Her anemia is felt to be secondary to her aggressive AML and no further workup is planned at this time. Patient also demonstrates significant leukocytosis. Upon presentation, her white blood cell count was elevated at 186,000. She has been hydrated, placed on hydroxyurea therapy and, on day of discharge, white blood cell count is now down to 137,000. She will be maintained on hydroxyurea and will need to monitor other blood counts closely. Unit #: [id number] #: [id number] Patient: DEDRA ALONSO Goals of care were discussed with the patient both by Dr. Hooker, Dr. Santillan and myself. Her long-term poor prognosis was discussed in detail. However, at this time, patient does not want Hospice therapy. Plan to discharge home with hydroxyurea. She will follow up with Dr. Hooker early next week and perhaps receive a second opinion if she so desires at [facility]. DISCHARGE CONDITION Stable. DISCHARGE STATUS Discharged to home. DISCHARGE MEDICATIONS 1. Tylenol 500 mg p.o. daily p.r.n. for pain. 2. Zoloft 100 mg daily. 3. Kathy 180 mg p.o. daily p.r.n. for allergies. 4. Phenergan 12.5 mg p.o. q.4 hours p.r.n. for nausea. 5. Hydroxyurea 500 mg p.o. b.i.d. with one refill given. 6. Metoprolol succinate 50 mg daily. 7. Ditropan XL 15 mg p.o. daily. 8. [place] 5/325 mg one tablet p.o. q.6 hours p.r.n. for pain. 9. Omeprazole 40 mg daily. 10. Levothyroxine 125 mcg p.o. daily. DISCHARGE INSTRUCTIONS The patient was instructed to follow a regular diet. She can increase her activity as tolerated. FOLLOWUP The patient will follow up with Dr. Hooker on Sunday, February 12, 2017, and needs repeat blood counts at that time. Time spent on discharge today 32 minutes. Dictated by... Keyana Carpenter M.D. SHIVANI/carolyn TD: 02/12/2017 07:26 JOB #: [id number] DISCHARGE SUMMARY Page 1 of 1 X Keyana Carpenter MD DISCHARGE SUMMARY
[~2017-02-07 11:18] MED LIST changes: +CYANOCOBAL1000 MCG/M INJ; +DITROPAN XL PO; +OMEPRAZOLE40 M1 PO; +PATIENT'S PHARMACY; +TOPROL XL50 MG PO; +ZOLOFT100 MG PO; +ZOVIRAX30 GM TOP
[2017-02-07] MEDS ORDERED: HYDROCODON-ACE1 EAC7 PO (14:36)
[2017-02-07] MEDS ORDERED: PHENERGAN12.5 MG PO (14:38)
[2017-02-07 14:42] LABS: EOSINOPHIL# 0.3 X10e3 (0-0.7); EOSINOPHIL% 0.1 % (0.0-7.0); HEMATOCRIT 15.1 % (35.0-45.0); LYMPHOCYTE# 184.7 X10e3 (1.0-3.5); LYMPHOCYTE% 99.1 % (17.0-45.0); MEAN CORPUSCULAR HEMOGLOBIN 30.8 PG (28-34); MEAN CORPUSCULAR HGB CONC 31.1 g/dL (30-36); MEAN PLATELET VOLUME 6.9 FL (6.5-11.5); NEUTROPHIL# 1.4 X10e3 (1.5-7.1); NEUTROPHIL% 0.8 % (40-75); RED BLOOD COUNT 1.53 X10e (3.90-5.30); RED CELL DISTRIBUTION WIDTH 21.7 % (11.0-15.5)
[2017-02-07 14:49] LABS: WHITE BLOOD COUNT 186.4 X10e3 (4.0-10.5)
[2017-02-07 14:50] LABS: DIFF IND YES; HEMOGLOBIN 4.7 gm/dL (12.0-16.0); PLATELET COUNT 22 X10e3 (140-420)
[2017-02-07 15:00] LABS: ALBUMIN SERUM 3.1 g/dL (3.5-5.0); BILIRUBIN,TOTAL 0.7 mg/dL (0.2-2.0); CALCIUM SERUM 8.5 mg/dL (8.4-10.2); CREATININE SERUM 0.8 mg/dL (0.6-1.4); GLOM FILT RATE Estimated 70.2 mL/min (>60); POTASSIUM 3.3 mmol/L (3.5-5.1); PROTEIN TOTAL SERUM 6.6 g/dL (6.0-8.3)
[2017-02-07 15:34] LABS: PLATELET ESTIMATE DECREASED (NORMAL)
[2017-02-07 15:35] LABS: ANISOCYTOSIS MOD
[2017-02-07 22:34] LABS: HEMOGLOBIN 6.5 gm/dL (12.0-16.0)
[2017-02-07 22:49] LABS: BUN/CREATININE RATIO 16.66; CALCIUM SERUM 7.8 mg/dL (8.4-10.2); CREATININE SERUM 0.6 mg/dL (0.6-1.4); GLOM FILT RATE Estimated 86.7 mL/min (>60); POTASSIUM 3.7 mmol/L (3.5-5.1)
[2017-02-08 05:47] LABS: BASOPHIL# 1.7 X10e3 (0-0.3); BASOPHIL% 1.1 % (0-2.5); HEMATOCRIT 26.2 % (35.0-45.0); LYMPHOCYTE# 145.7 X10e3 (1.0-3.5); MEAN CORPUSCULAR HEMOGLOBIN 31.1 PG (28-34); MEAN CORPUSCULAR HGB CONC 34.5 g/dL (30-36); MEAN PLATELET VOLUME 6.9 FL (6.5-11.5); MONOCYTE# 1.2 X10e3 (0-1.0); MONOCYTE% 0.8 % (3.0-12.0); NEUTROPHIL# 1.7 X10e3 (1.5-7.1); NEUTROPHIL% 1.1 % (40-75); RED BLOOD COUNT 2.91 X10e (3.90-5.30); RED CELL DISTRIBUTION WIDTH 16.1 % (11.0-15.5)
[2017-02-08 05:56] LABS: WHITE BLOOD COUNT 150.3 X10e3 (4.0-10.5)
[2017-02-08 05:57] LABS: PLATELET COUNT 17 X10e3 (140-420)
[2017-02-08 05:58] LABS: ALBUMIN SERUM 2.6 g/dL (3.5-5.0); BILIRUBIN,TOTAL 0.9 mg/dL (0.2-2.0); BUN/CREATININE RATIO 11.42; CREATININE SERUM 0.7 mg/dL (0.6-1.4); GLOM FILT RATE Estimated 82.4 mL/min (>60); POTASSIUM 3.4 mmol/L (3.5-5.1); PROTEIN TOTAL SERUM 5.9 g/dL (6.0-8.3)
[2017-02-08 06:00] LABS: DIFF IND NO
[2017-02-09 07:16] LABS: HEMATOCRIT 27.7 % (35.0-45.0); HEMOGLOBIN 9.4 gm/dL (12.0-16.0); MEAN CELL VOLUME 90.8 FL (83-96); MEAN CORPUSCULAR HEMOGLOBIN 30.9 PG (28-34); MEAN PLATELET VOLUME 10.6 FL (6.5-11.5); RED BLOOD COUNT 3.05 X10e (3.90-5.30); RED CELL DISTRIBUTION WIDTH 16.7 % (11.0-15.5)
[2017-02-09 07:19] LABS: BUN/CREATININE RATIO 13.33; CALCIUM SERUM 8.2 mg/dL (8.4-10.2); CREATININE SERUM 0.6 mg/dL (0.6-1.4); GLOM FILT RATE Estimated 86.7 mL/min (>60); POTASSIUM 3.1 mmol/L (3.5-5.1)
[2017-02-09 07:43] LABS: WHITE BLOOD COUNT 157.8 X10e3 (4.0-10.5)
[2017-02-10 08:12] LABS: HEMATOCRIT 29.8 % (35.0-45.0); HEMOGLOBIN 9.3 gm/dL (12.0-16.0); MEAN CORPUSCULAR HEMOGLOBIN 29.6 PG (28-34); MEAN CORPUSCULAR HGB CONC 31.2 g/dL (30-36); MEAN PLATELET VOLUME 7.7 FL (6.5-11.5); RED BLOOD COUNT 3.14 X10e (3.90-5.30); RED CELL DISTRIBUTION WIDTH 17.3 % (11.0-15.5)
[2017-02-10 08:16] LABS: MEAN CELL VOLUME 94.9 FL (83-96); WHITE BLOOD COUNT 137.8 X10e3 (4.0-10.5)
[2017-02-10] MEDS ORDERED: LORTAB 5-325 M1 EACH PO (12:50)
[2017-02-10] MEDS ORDERED: HYDROXYUREA500 M1 PO (12:52)
== END 2017-02-10 17:22 | disposition home or self-care (01) | DRG 841 ==
LOC: UNDOADMIN 12:25 → CICCU3 12:25 → C5B 02-08 17:41 → C5C 02-09 21:32
PROVIDERS: Family Medicine; Internal Medicine; Internal Medicine Medical Oncology
PROC: 30243N1 Transfusion of Nonautologous Red Blood Cells into Central Vein, Percutaneous Approach (ICD-10-PCS; principal; 2017-02-07)
PROC: 6A551Z2 Pheresis of Platelets, Multiple (ICD-10-PCS; 2017-02-09)
DX: C92.Z0 Other myeloid leukemia not having achieved remission (principal); E44.0 Moderate protein-calorie malnutrition; R34 Anuria and oliguria; D69.6 Thrombocytopenia, unspecified; D63.0 Anemia in neoplastic disease; E87.6 Hypokalemia; E66.3 Overweight; K21.9 Gastro-esophageal reflux disease without esophagitis; E03.9 Hypothyroidism, unspecified; I10 Essential (primary) hypertension; F32.9 Major depressive disorder, single episode, unspecified; Z90.710 Acquired absence of both cervix and uterus; N39.41 Urge incontinence
CPT/HCPCS: 36430; 71010; 71020; 80048; 80053; 82308; 83735; 83880; 84132; 85014; 85018; 85025; 85027; 86850; 86900; 86901; 86923; 94010; 97116; 97161; 97530; C9113; G8978-GP; G8979-GP; P9016; P9035